=== PATIENT | male | born 1975 | race Caucasian/White ===

== ENCOUNTER 2020-07-20 15:56 | Emergency (ER) | payer MEDICAID, SELFPAY ==
[2020-07-20 15:57] VITALS: BP 153/94; PULSE 99; RESP 18; TEMP 36.6; O2SAT 98; BMI 27.0
--- NOTE | 2020-07-20 16:12 | ED.VIS.GEN ---
History of Present Illness Chief Complaint: Eye Problem Informant: Patient Narrative: 44-year-old male presenting with right eye foreign body sensation. He states he was grinding on a car at work and he had finished grinding however at that point some of the metal flew up into his face. He did try to irrigate his right eye. He denies symptoms in his left eye he feels as if it is moving around in his eye. He does have some eye irritation. Denies visual disturbance. Past Medical History - Allergies and Home Meds Allergies/Adverse Reactions: Allergies No Known Allergies Allergy (Verified 07/20/20 15:58) Primary Care Physician: Felipe Diaz MD [STAFF PHYSICIAN] - NOT,DEFINED [NON-STAFF] - Prior records reviewed: Yes Surgical History: noncontributory Lives: Alone Smoking Status: Current every day smoker Alcohol: None Drugs: None Review of Systems General: Denies: Chills, Fever, Sweats Eyes: Reports: - - Right eye foreign body sensation.. Denies: Visual changes - bilaterally, Diplopia ENT: Denies: Rhinorrhea, Sore throat Cardiovascular: Denies: Chest pain, Palpitations Respiratory: Denies: Dyspnea, Cough, Dyspnea on exertion Gastrointestinal: Denies: Abdominal pain, Nausea, Vomiting, Diarrhea, Melena, Hematochezia Genitourinary: Denies: Dysuria, Hematuria, Frequency Musculoskeletal: Denies: Myalgias, Arthralgias, Neck pain, Back pain, Swelling, Extremity Pain, -, - Skin: Denies: Rash, Wounds Neurological: Denies: Headache, Weakness, Numbness Psych: Denies: Depression, Anxiety Physical Exam Vital Signs/Narrative: Vital Signs Temp Pulse Resp BP Pulse Ox 07/20/20 15:57 97.8 F 99 18 153/94 H 98 Inital Vital Signs reviewed: Yes General: Well nourished, No Acute Distress Head: Normocephalic, Atraumatic Eyes: Perrl, EOMI, - - Injection in the right eye. No foreign bodies located in the lids and lashes. There appears to be foreign body at about 7:00 which is not cover the cornea. There is not appear to be any other urinary abrasions. ENT: Moist mucous membranes, No rhinorrhea Cardiovascular: Regular rate, Regular rhythm Respiratory: No distress, CTA bilaterally Skin: Normal color, No rash Neurological: Alert, Oriented x3, Cranial nerves II-XII grossly intact Psychological: Normal affect, Normal Mood Diagnostic/Tx/Re-eval - Medical Decision Making Patient has metallic looking foreign body in right eye at 8 o'clock position. There is no other corneal abrasions noted. Discussed patient with Dr. Diaz who agreed that since it has been a week he should probably see him in office. He recommended ciprofloxacin eyedrops every 6 hours. Patient will follow up with him in the morning. Patient stable discharge at this time. Pression: 1. Foreign body right eye?metallic ED Disposition - Plan for ED Patient: Disposition: Home or Assisted Living Instructions: ED Corneal Foreign Body, Removed Prescriptions: Ciprofloxacin 0.3% [Ciloxan] 2 drp LEFT EYE Q6H 5 Days bottle Prescription Printed Referrals: NOT,DEFINED [NON-STAFF] - Felipe Diaz MD [STAFF PHYSICIAN] - Additional Instructions: Dr. Diaz would like you to call the office at 745 to 7:50 AM to schedule appointment to be seen tomorrow.
[2020-07-20] MEDS: Fluorescein 1 MG STRIP 1 STRIP RIGHT EYE (16:55)
[2020-07-20] MEDS: Tetracaine 0.5% Ophthalmic Bottle 1 DRP RIGHT EYE (16:55)
[2020-07-20] MEDS: Ciprofloxacin 0.3% 2.5ml Bottle 2 DRP RIGHT EYE (17:33)
== END 2020-07-20 17:35 | disposition home or self-care (01) ==
PROVIDERS: Emergency Provider Student in an Organized Health Care Education/Training Program
DX: T15.91XA Foreign body on external eye, part unspecified, right eye, initial encounter (principal); F17.200 Nicotine dependence, unspecified, uncomplicated; X58.XXXA Exposure to other specified factors, initial encounter
CPT/HCPCS: 99283